=== PATIENT | male | born 1970 | race Caucasian/White ===

== ENCOUNTER 2016-05-29 09:10 | Emergency (ER) | payer OTHER ==
[2016-05-29 09:14] VITALS: RESP 18; O2SAT 96
--- NOTE | 2016-05-29 09:21 | CPEKG ---
Heart Rate: 70 RR Interval: 857 P-R Interval: 120 QRSD Interval: 92 QT Interval: 404 QTC Interval: 436 P Qu[place]: 68 QRS [place]: 78 T Wave Qu[place]: 34 EKG Severity - NORMAL ECG - EKG Impression: SINUS RHYTHM Electronically Signed By: Mac Bowles 29-May-2016 09:35:08
[2016-05-29] MEDS ORDERED: ASPIRIN 325 MG TAB PO ONE (09:29)
[2016-05-29] MEDS ORDERED: NS 1,000 ML IV ONE (09:31)
[2016-05-29] MEDS ORDERED: ASPIRIN 81 MG CHEWABLE TAB ONE (09:31)
--- NOTE | 2016-05-29 09:35 | EDPHY ---
H & P Stated Complaint: cp /lightheaded x 2 days Time Seen by Provider: 05/29/16 09:21 HPI/ROS: CHIEF COMPLAINT: Chest pain HISTORY OF PRESENT ILLNESS: Patient is a 45-year-old healthy man who comes to the emergency department complaining of left-sided chest pain each morning for the last 3 days. It seems to start in about an hour after gets to work. He denies shortness of breath or diaphoresis. He denies recent illness. It is not worsened by exertion. He states that it is very minimally only 2/10. It is now resolved. No cough or upper respiratory symptoms. REVIEW OF SYSTEMS: Constitutional: denies: chills, fever, recent illness, recent injury EENTM: denies: blurred vision, double vision, nose congestion Respiratory: denies: cough, shortness of breath Cardiac: See HPI Gastrointestinal/Abdominal: denies: abdominal pain, diarrhea, nausea, vomiting, blood streaked stools Genitourinary: denies: dysuria, frequency, hematuria, pain Musculoskeletal: denies: joint pain, muscle pain Skin: denies: lesions, rash, jaundice, bruising Neurological: denies: headache, numbness, paresthesia, tingling, dizziness, weakness Hematologic/Lymphatic: denies: blood clots, easy bleeding, easy bruising Immunologic/allergic: denies: HIV/AIDS, transplant EXAM: GENERAL: Well-appearing, well-nourished and in no acute distress. HEAD: Atraumatic, normocephalic. EYES: Pupils equal round and reactive to light, extraocular movements intact, sclera anicteric, conjunctiva are normal. ENT: TMs normal, nares patent, oropharynx clear without exudates. Moist mucous membranes. NECK: Normal range of motion, supple without lymphadenopathy or JVD. LUNGS: Breath sounds clear to auscultation bilaterally and equal. No wheezes rales or rhonchi. HEART: Regular rate and rhythm without murmurs, rubs or gallops. ABDOMEN: Soft, nontender, normoactive bowel sounds. No guarding, no rebound. No masses appreciated. BACK: No CVA tenderness, no spinal tenderness, step-offs or deformities EXTREMITIES: Normal range of motion, no pitting or edema. No clubbing or cyanosis. NEUROLOGICAL: Cranial nerves II through XII grossly intact. Normal speech, normal gait. 5/5 strength, normal movement in all extremities, normal sensation PSYCH: Normal mood, normal affect. SKIN: Warm, dry, normal turgor, no visible rashes or lesions. Source: Patient Exam Limitations: No limitations - Personal History Current Tetanus/Diphtheria Vaccine: No - Medical/Surgical History Hx Asthma: No Hx Chronic Respiratory Disease: No Hx Diabetes: No Hx Cardiac Disease: No Hx Renal Disease: No Hx Cirrhosis: No Hx Alcoholism: No Hx HIV/AIDS: No Hx Splenectomy or Spleen Trauma: No Other PMH: r wrist fx - Family History Significant Family History: No pertinent family hx - Social History Smoking Status: Never smoked Alcohol Use: Sober Drug Use: None Constitutional: Initial Vital Signs Temperature (C) 36.4 C 05/29/16 09:12 Heart Rate 66 05/29/16 09:12 Respiratory Rate 18 05/29/16 09:12 Blood Pressure 134/79 H 05/29/16 09:12 O2 Sat (%) 96 05/29/16 09:12 O2 Delivery Mode Room Air Allergies/Adverse Reactions: No Known Allergies Allergy (Unverified 05/29/16 09:11) Home Medications: Medication Instructions Recorded NK [No Known Home Meds] 05/29/16 Medical Decision Making - Diagnostics EKG Interpretation: An EKG obtained and was read and documented in trace view. Please see trace view for full reading and report. Sinus rhythm, no acute ischemic changes Imaging: X-ray: chest x-ray was obtained. I viewed the images myself on the PACS system. My interpretation of the images is: negative for acute disease . The radiologist interpretation is possible sclerotic lesion in right 6th rib. ED Course/Re-evaluation: 10:20 a.m. the patient remains asymptomatic. Discussed his x-ray and slightly elevated bilirubin. He has had problems with his gallbladder but had a negative ultrasound. He will follow up In a few weeks and have his bilirubin recheck. He will do the same for his chest x-ray. He declines further workup or testing at this time and is eager to go home. He denies having any type of abdominal or right upper quadrant pain or tenderness. Differential Diagnosis: Partial list of the Differential diagnosis considered include but were not limited to; acute coronary disease, anxiety, peptic ulcer disease and although unlikely based on the history and physical exam, I also considered pneumonia, PE , pneumothorax. I discussed these differential diagnoses and the plan with the patient as well as the usual and expected course. The patient understands that the diagnosis is provisional and that in medicine we are not always correct and that further workup is often warranted. Usual and customary warnings were given. All of the patient's questions were answered. The patient was instructed to return to the emergency department should the symptoms at all worsen or return, otherwise to followup with the physician as we discussed. - Data Points Laboratory Results: Laboratory Results 05/29/16 08:25 05/29/16 08:25 05/29/16 08:25 WBC 4.14 10^3/uL (3.80-9.50) RBC 5.24 10^6/uL (4.40-6.38) Hgb 17.0 g/dL (13.7-17.5) Hct 48.1 % (40.0-51.0) MCV 91.8 fL (81.5-99.8) MCH 32.4 pg (27.9-34.1) MCHC 35.3 g/dL (32.4-36.7) RDW 12.9 % (11.5-15.2) Plt Count 199 10^3/uL (150-400) MPV 9.9 fL (8.7-11.7) Neut % (Auto) 56.6 % (39.3-74.2) Lymph % (Auto) 34.5 % (15.0-45.0) Morrison % (Auto) 5.6 % (4.5-13.0) Eos % (Auto) 2.9 % (0.6-7.6) Baso % (Auto) 0.2 L % (0.3-1.7) Nucleat RBC Rel Count 0.0 % (0.0-0.2) Absolute Neuts (auto) 2.34 10^3/uL (1.70-6.50) Absolute Lymphs (auto) 1.43 10^3/uL (1.00-3.00) Absolute Monos (auto) 0.23 L 10^3/uL (0.30-0.80) Absolute Eos (auto) 0.12 10^3/uL (0.03-0.40) Absolute Basos (auto) 0.01 L 10^3/uL (0.02-0.10) Absolute Nucleated RBC 0.00 10^3/uL (0-0.01) Immature Gran % 0.2 % (0.0-1.1) Immature Gran # 0.01 10^3/uL (0.00-0.10) Sodium 144 mEq/L (134-144) Potassium 3.8 mEq/L (3.5-5.2) Chloride 103 mEq/L (97-110) Carbon Dioxide 27 mEq/l (22-31) Anion Gap 14 mEq/L (8-16) BUN 14 mg/dL (7-23) Creatinine 0.8 mg/dL (0.7-1.3) Estimated GFR > 60 Glucose 137 H mg/dL (70-100) Calcium 9.3 mg/dL (8.5-10.4) Total Bilirubin 1.8 H mg/dL (0.1-1.4) Conjugated Bilirubin 0.3 mg/dL (0.0-0.5) Unconjugated Bilirubin 1.5 H mg/dL (0.0-1.1) AST 26 IU/L (17-59) ALT 33 IU/L (21-72) Alkaline Phosphatase 80 IU/L (38-126) Troponin I < 0.012 ng/mL (0-0.034) Total Protein 7.8 g/dL (6.3-8.2) Albumin 4.6 g/dL (3.5-5.0) Lipase 46.0 IU/L (23-300) Medications Given: Discontinued Medications Aspirin (Aspirin) 325 mg PO EDNOW ONE Stop: 05/29/16 09:30 Last Admin: 05/29/16 09:36 Dose: 325 mg Sodium Chloride (Ns) 1,000 mls @ 0 mls/hr IV ONCE ONE PRN Reason: Wide Open Stop: 05/29/16 09:32 Last Admin: 05/29/16 09:36 Dose: 1,000 mls Departure - Departure Disposition: Home, Routine, Self-Care Clinical Impression: Chest pain Qualifiers: Chest pain type: other chest pain Qualifier Code: (R07.89) Other chest pain Condition: Fair Instructions: Chest Pain (ED) Additional Instructions: Follow-up in 2-4 weeks for repeat evaluation of your bilirubin levels. Today in the emergency department her total bilirubin was 1.8. Also for x-ray which reveals a unusual sclerosis on the right 6th rib versus possible underlying lung abnormality Referrals: NONE *PRIMARY CARE P,. [Primary Care Provider] - As per Instructions Claudia Acevedo MD [Medical Doctor] - As per Instructions
[2016-05-29 09:38] LABS: % IMMATURE GRANULYOCYTES 0.2 % (0.0-1.1); ABSOLUTE IMMATURE GRANULOCYTES 0.01 10^3/uL (0.00-0.10); ADD DIFF? NO; ADD MORPH? NO; ADD SCAN? NO; ATYPICAL LYMPHOCYTE FLAG 10 (0-99); FRAGMENT RBC FLAG 0 (0-99); HEMATOCRIT 48.1 % (40.0-51.0); LEFT SHIFT FLG 0 (0-99); LIPEMIA HEMOLYSIS FLAG 90 (0-99); MEAN CELL HEMOGLOBIN 32.4 pg (27.9-34.1); MEAN CELL HEMOGLOBIN CONCENTR. 35.3 g/dL (32.4-36.7); MEAN CELL VOLUME 91.8 fL (81.5-99.8); MEAN PLATELET VOLUME 9.9 fL (8.7-11.7); PLATELET CLUMPS FLAG 0 (0-99); PLATELET COUNT 199 10^3/uL (150-400); RED BLOOD CELL COUNT 5.24 10^6/uL (4.40-6.38); RED CELL DISTRIBUTION WIDTH 12.9 % (11.5-15.2)
[2016-05-29 09:49] LABS: ALANINE AMINOTRANSFERASE 33 IU/L (21-72); ALBUMIN 4.6 g/dL (3.5-5.0); ALKALINE PHOSPHATASE 80 IU/L (38-126); ANION GAP 14 mEq/L (8-16); ASPARTATE AMINOTRANSFERASE 26 IU/L (17-59); BILIRUBIN,TOTAL 1.8 mg/dL (0.1-1.4); BILIRUBIN-CONJUGATED 0.3 mg/dL (0.0-0.5); BILIRUBIN-UNCONJUGATED 1.5 mg/dL (0.0-1.1); CALCIUM 9.3 mg/dL (8.5-10.4); CARBON DIOXIDE 27 mEq/l (22-31); CHLORIDE 103 mEq/L (97-110); CREATININE 0.8 mg/dL (0.7-1.3); GLOMERULAR FILTRATION RATE > 60; GLUCOSE 137 mg/dL (70-100); POTASSIUM 3.8 mEq/L (3.5-5.2); SODIUM 144 mEq/L (134-144); TOTAL PROTEIN 7.8 g/dL (6.3-8.2)
--- NOTE | 2016-05-29 09:52 | DX ---
Chest, PA and Lateral History: Chest pain, lightheadedness Findings: Lung findings are mildly prominent. There is mild bronchial wall thickening. Lungs are deirdre r, without infiltrate or consolidation. Heart size is relatively small, consistent with the prominent lung volumes. There is no adenopathy or mass lesion. There is no pleural effusion, pneumomediastinum or pneumothorax. There is an unusual sclerotic density overlying the posterior right sixth rib that is either in the rib or underlying lung. No other skeletal lesions are identified. Impression: 1. Suspect airways disease 2. Unusual right rib sclerosis versus abnormality in the underlying lung. Consider rib x-rays for fur ther evaluation.
[2016-05-29 09:59] LABS: TROPONIN I < 0.012 ng/mL (0-0.034)
[2016-05-29 10:38] VITALS: BP 117/76; PULSE 64; TEMP 98.1
== END 2016-05-29 10:37 | disposition home or self-care (01) ==
DX: R07.89 Other chest pain (principal)